=== PATIENT | female | born 1985 | race African-American/Black ===

== ENCOUNTER 2020-05-01 13:30 | Observation (INO) | payer BC, MEDICAID ==
[~2020-05-01] VITALS: Ht 154.9 cm; Wt 74.0 kg
[2020-05-01 15:00] LABS: CHLORIDE 110 mEq/L (98-107)
[2020-05-01 15:03] LABS: BASOPHILS % 0.7 % (0.0-2.0); EOSINOPHILS % 1.9 % (0.0-5.0); HEMATOCRIT. 33.2 % (36.0-48.0); LYMPHOCYTES % 15.6 % (20.0-50.0); MEAN CORPUSCULAR HEMOGLOBIN 28.7 pg (28.0-32.0); MEAN CORPUSCULAR VOLUME 86.7 fL (81.0-99.0); MEAN PLATELET VOLUME 8.9 fl (7.4-10.4); MONOCYTES % 11.2 % (2.0-8.0); NEUTROPHILS % 70.6 % (40.0-76.0); PLATELET 167 x1000/uL (130-400); RED BLOOD CELL COUNT 3.82 mill/uL (4.2-5.4); RED CELL DISTRIBUTION WIDTH 15.6 % (11.6-14.6)
[2020-05-01 16:29] VITALS: BP 119/79
== END 2020-05-01 20:10 | disposition home or self-care (01) ==
LOC: ER 13:30 → 8EST NSY 16:47 → 8 EST A/PP 18:44
PROVIDERS: ADMIT Obstetrics & Gynecology; ATTEND Obstetrics & Gynecology
DX: O99.413 Diseases of the circulatory system complicating pregnancy, third trimester (principal); R00.2 Palpitations; O99.52 Diseases of the respiratory system complicating childbirth; J45.909 Unspecified asthma, uncomplicated; Z3A.37 37 weeks gestation of pregnancy; Z79.899 Other long term (current) drug therapy
CPT/HCPCS: 36415; 59025; 80053; 83880; 84484; 85025; 93005; 99284; G0378; 99281

== ENCOUNTER 2020-05-08 09:24 | Inpatient (IN) | payer MEDICAID ==
[~2020-05-08] VITALS: Ht 162.6 cm; Wt 74.4 kg
[2020-05-08] MEDS ORDERED: DEXT 5%/LR + PITOCIN 20UNITS/L 1,000 ML IV SCH (10:46)
[2020-05-08] MEDS ORDERED: METHYLERGONOVINE MALEATE 0.2 MG/ML IM PRN (11:00)
[2020-05-08] MEDS ORDERED: BUTORPHANOL TARTRATE 2 MG/ML VIAL IV PRN (11:00)
[2020-05-08] MEDS ORDERED: LIDOCAINE HCL 1% 20ML VIAL (Pyxis) INJ INFIL SCH (11:00)
[2020-05-08 11:49] LABS: BASOPHILS % 0.8 % (0.0-2.0); EOSINOPHILS % 1.7 % (0.0-5.0); HEMATOCRIT. 32.3 % (36.0-48.0); HEMOGLOBIN. 10.9 g/dL (12.0-16.0); LYMPHOCYTES % 15.3 % (20.0-50.0); MEAN CORPUSCULAR HEMOGLOBIN 28.8 pg (28.0-32.0); MEAN CORPUSCULAR VOLUME 85.5 fL (81.0-99.0); MEAN PLATELET VOLUME 9.5 fl (7.4-10.4); MONOCYTES % 9.6 % (2.0-8.0); NEUTROPHILS % 72.6 % (40.0-76.0); PLATELET 172 x1000/uL (130-400); RED BLOOD CELL COUNT 3.78 mill/uL (4.2-5.4); RED CELL DISTRIBUTION WIDTH 15.4 % (11.6-14.6)
[2020-05-08 11:52] LABS: CLARITY URINE CLEAR (CLEAR); COLOR URINE DARK YELLOW (YELLOW); KETONES URINE 2+ (NEGATIVE); LEUKOCYTE ESTERASE URINE TRACE (NEGATIVE); NITRITE URINE NEGATIVE (NEGATIVE); OCCULT BLOOD URINE NEGATIVE (NEGATIVE); PROTEIN URINE TRACE (NEGATIVE); SPECIFIC GRAVITY URINE 1.024 (1.005-1.030)
[2020-05-08] MEDS: LACTATED RINGERS 1,000 ML IV SCH (12:13)
[2020-05-08 12:34] LABS: PARTIAL THROMBOPLASTIN TIME 26.4 sec (23.4-31.0); PROTHROMBIN TIME 10.1 sec (9.6-11.0)
[2020-05-08 12:40] LABS: *AMPHETAMINES SCREEN URINE NEGATIVE (NEGATIVE); *BARBITURATES SCREEN URINE NEGATIVE (NEGATIVE)
[2020-05-08 12:41] LABS: *COCAINE SCREEN URINE NEGATIVE (NEGATIVE)
[2020-05-08 12:42] LABS: *BENZODIAZEPINES SCREEN URINE NEGATIVE (NEGATIVE)
[2020-05-08 12:43] LABS: METHADONE URINE SCREEN NEGATIVE (NEGATIVE); PHENCYCLIDINE URINE SCREEN NEGATIVE (NEGATIVE)
[2020-05-08 12:45] LABS: CANNABINOID URINE SCREEN NEGATIVE (NEGATIVE); OPIATES URINE SCREEN NEGATIVE (NEGATIVE)
[2020-05-08 13:06] LABS: HEPATITIS B SURFACE ANTIGEN NEGATIVE
[2020-05-08] MEDS: MISOPROSTOL 100MCG TABLET VG SCH ×2 (13:56→18:03)
[2020-05-09] MEDS ORDERED: FENTANYL CITRATE/PF 50MCG/ML 2ML VIAL IV PRN (03:45)
[2020-05-09] MEDS ORDERED: BUPIVACAINE HCL/PF 0.25% (2.5MG/ML) 10ML ONE (05:59)
[2020-05-09] MEDS ORDERED: FENTANYL CITRATE/PF 50MCG/ML 2ML VIAL ONE (05:59)
[2020-05-09] MEDS ORDERED: SODIUM CHLORIDE 0.9% 10ML VIAL ONE (05:59)
[2020-05-09] MEDS ORDERED: ROPIVACAINE HCL/PF 0.2% (2MG/ML) EPID 200ML EPI SCH (06:00)
[2020-05-09] MEDS: AMPICILLIN 2,000 MG in SODIUM CHLORIDE 0.9% 100 ML IV SCH ×3 (09:55→22:46)
[2020-05-09] MEDS ORDERED: LIDOCAINE HCL 2%/EPINEPHRINE 1:100,000 20 ML VIAL INFIL ONE (17:36)
[2020-05-09] MEDS ORDERED: BUTORPHANOL TARTRATE 2 MG/ML VIAL IM PRN (19:30)
[2020-05-09] MEDS: LACTATED RINGERS 1,000 ML IV SCH (20:07)
[2020-05-09] MEDS: MISOPROSTOL 100MCG TABLET VG SCH (21:00)
[2020-05-09] MEDS ORDERED: ROPIVACAINE HCL/PF EPIDURAL 200 ML EPI SCH (21:45)
[2020-05-10] MEDS ORDERED: CITRIC ACID/SODIUM CITRATE SOLN 30ML UDC PO NR ×2 (00:45→01:00)
[2020-05-10] MEDS ORDERED: DIPHENHYDRAMINE 50MG/ML VIAL IV PRN (01:00)
[2020-05-10] MEDS ORDERED: MEPERIDINE HCL/PF 25MG/ML CPJ IV PRN (01:00)
[2020-05-10] MEDS ORDERED: METOCLOPRAMIDE HCL 10MG/2ML VIAL IV PRN (01:00)
[2020-05-10] MEDS ORDERED: MORPHINE SULFATE 4 MG/ML CPJ (NOT FOR IM USE) IV PRN (01:00)
[2020-05-10] MEDS ORDERED: ONDANSETRON HCL 4MG/2ML INJ IV PRN ×2 (01:00→03:45)
[2020-05-10] MEDS ORDERED: OXYTOCIN 10 UNITS/ML 1ML ONE (01:07)
[2020-05-10] MEDS ORDERED: CEFAZOLIN SODIUM 1000MG/VIAL ONE (01:07)
[2020-05-10] MEDS ORDERED: SODIUM CHLORIDE 0.9% 10ML VIAL ONE (01:07)
[2020-05-10] MEDS ORDERED: EPHEDRINE SULFATE 50MG/ML VIAL ONE (01:08)
[2020-05-10] MEDS ORDERED: PHENYLEPHRINE HCL 10 MG/ML 1ML (IV VIAL) IV ONE (01:08)
[2020-05-10] MEDS ORDERED: MORPHINE SULFATE/PF 1MG/ML 10ML AMP ONE (01:09)
[2020-05-10] MEDS ORDERED: FENTANYL CITRATE/PF 50MCG/ML 2ML VIAL ONE (01:09)
[2020-05-10] MEDS: LACTATED RINGERS 1,000 ML IV SCH (01:19)
[2020-05-10] MEDS: AMPICILLIN 2,000 MG in SODIUM CHLORIDE 0.9% 100 ML IV SCH ×3 (02:10→20:02)
[2020-05-10] MEDS ORDERED: LANOLIN OINT 7GM TUBE TOP PRN (03:45)
[2020-05-10] MEDS ORDERED: ACETAMINOPHEN WITH CODEINE 300/30MG TABLET PO PRN (03:45)
[2020-05-10] MEDS ORDERED: BISACODYL 10MG SUPP PR PRN (03:45)
[2020-05-10] MEDS ORDERED: DIPHENHYDRAMINE 25MG CAPSULE PO PRN (03:45)
[2020-05-10] MEDS ORDERED: HEMORRHOIDAL SUPP PR PRN (03:45)
[2020-05-10] MEDS ORDERED: IBUPROFEN 400MG TABLET PO PRN (03:45)
[2020-05-10] MEDS: DEXT 5%/LR + PITOCIN 20UNITS/L 1,000 ML IV SCH ×3 (04:01→12:45)
[2020-05-10] MEDS ORDERED: MORPHINE SULFATE 2 MG/ML CPJ (NOT FOR IM USE) IV PRN (04:15)
[2020-05-10 06:40] VITALS: BP 115/72
[2020-05-10] MEDS: MAGNESIUM/ALUMINUM HYDROXIDE/SIMETHICONE 30ML UDC PO SCH ×3 (07:30→17:30)
[2020-05-10] MEDS: SIMETHICONE 80MG TABLET CHEW PO SCH ×3 (07:44→18:00)
[2020-05-10] MEDS: PRENATAL VIT/FE FUMARATE/FA TABLET PO SCH (07:44)
[2020-05-10 08:00] VITALS: BP 112/61
[2020-05-10] MEDS ORDERED: KETOROLAC 30MG/ML VIAL IV PRN (10:30)
[2020-05-10] MEDS ORDERED: TETANUS, DIPHTHERIA, PERTUSSIS VAC/PF 0.5ML (>7YR OLD) IM ONE (13:00)
[2020-05-10 15:44] VITALS: BP 96/57
[2020-05-10] MEDS: MISOPROSTOL 100MCG TABLET VG SCH (21:00)
[2020-05-10] MEDS ORDERED: DOCUSATE SODIUM 100MG CAPSULE PO SCH (21:00)
[2020-05-10 22:00] VITALS: BP 102/60
[2020-05-11] MEDS: IBUPROFEN 800MG TABLET PO PRN ×3 (02:16→20:01)
[2020-05-11 06:40] LABS: BASOPHILS % 0.4 % (0.0-2.0); EOSINOPHILS % 0.2 % (0.0-5.0); HEMATOCRIT. 28.3 % (36.0-48.0); HEMOGLOBIN. 9.3 g/dL (12.0-16.0); LYMPHOCYTES % 11.7 % (20.0-50.0); MEAN CORPUSCULAR HEMOGLOBIN 28.1 pg (28.0-32.0); MEAN CORPUSCULAR VOLUME 85.7 fL (81.0-99.0); MEAN PLATELET VOLUME 9.3 fl (7.4-10.4); MONOCYTES % 10.9 % (2.0-8.0); NEUTROPHILS % 76.8 % (40.0-76.0); PLATELET 174 x1000/uL (130-400); RED CELL DISTRIBUTION WIDTH 15.7 % (11.6-14.6)
[2020-05-11 08:00] VITALS: BP 111/73
[2020-05-11] MEDS: PRENATAL VIT/FE FUMARATE/FA TABLET PO SCH (08:21)
[2020-05-11] MEDS: SIMETHICONE 80MG TABLET CHEW PO SCH ×4 (08:21→21:05)
[2020-05-11] MEDS: FERROUS SULFATE 325MG TABLET PO SCH ×3 (08:21→17:46)
[2020-05-11] MEDS: MAGNESIUM/ALUMINUM HYDROXIDE/SIMETHICONE 30ML UDC PO SCH ×3 (13:41→21:04)
[2020-05-11 16:00] VITALS: BP 110/68
[2020-05-11 22:00] VITALS: BP 120/70
[2020-05-12 05:00] VITALS: BP 99/61
[2020-05-12 06:40] LABS: BASOPHILS % 0.4 % (0.0-2.0); EOSINOPHILS % 0.9 % (0.0-5.0); HEMATOCRIT. 27.5 % (36.0-48.0); HEMOGLOBIN. 8.9 g/dL (12.0-16.0); LYMPHOCYTES % 13.5 % (20.0-50.0); MEAN CORPUSCULAR HEMOGLOBIN 27.9 pg (28.0-32.0); MEAN CORPUSCULAR VOLUME 86.2 fL (81.0-99.0); MEAN PLATELET VOLUME 9.1 fl (7.4-10.4); MONOCYTES % 7.2 % (2.0-8.0); PLATELET 190 x1000/uL (130-400); RED CELL DISTRIBUTION WIDTH 16.2 % (11.6-14.6)
[2020-05-12 08:00] VITALS: BP 124/90
[2020-05-12] MEDS: IBUPROFEN 800MG TABLET PO PRN (08:02)
[2020-05-12] MEDS: FERROUS SULFATE 325MG TABLET PO SCH (08:02)
[2020-05-12] MEDS: PRENATAL VIT/FE FUMARATE/FA TABLET PO SCH (08:02)
[2020-05-12] MEDS: MAGNESIUM/ALUMINUM HYDROXIDE/SIMETHICONE 30ML UDC PO SCH (08:02)
[2020-05-12] MEDS: SIMETHICONE 80MG TABLET CHEW PO SCH (08:02)
== END 2020-05-12 10:30 | disposition home or self-care (01) | DRG 540 ==
LOC: OBSVTOIN 09:24 → 8 EST LDRP 09:24 → 8EST 05-10 07:07
PROVIDERS: ADMIT Obstetrics & Gynecology; ATTEND Obstetrics & Gynecology
PROC: 10D00Z1 Extraction of Products of Conception, Low, Open Approach (ICD-10-PCS; principal; 2020-05-10)
DX: O61.9 Failed induction of labor, unspecified (principal); O99.42 Diseases of the circulatory system complicating childbirth; O36.63X0 Maternal care for excessive fetal growth, third trimester, not applicable or unspecified; Z3A.38 38 weeks gestation of pregnancy; Z37.0 Single live birth; D72.829 Elevated white blood cell count, unspecified; I34.1 Nonrheumatic mitral (valve) prolapse; O99.13 Other diseases of the blood and blood-forming organs and certain disorders involving the immune mechanism complicating the puerperium
CPT/HCPCS: 36415; 76805; 76818; 80305; 81003; 85025; 86592; 86703; 86762; 86850; 86900; 87340; 88307; 90715; J0290; J0595; J0690; J1885; J2270; J2274; J2370; J2405; J2590; J2765; J2795; J3010; J3490; J7050; J7120